=== PATIENT | female | born 1940 | race Two or more races ===

== ENCOUNTER 2016-08-30 17:56 | Inpatient (IN) | payer MEDICAID ==
[~2016-08-30] VITALS: Ht 157.5 cm; Wt 76.7 kg
[2016-08-30] MEDS ORDERED: LIPITOR40 MG GT (18:15)
[2016-08-30] MEDS ORDERED: GABAPENTIN300 MG ORAL (18:15)
[2016-08-30] MEDS ORDERED: COENZYME Q10100 MG GT (18:15)
[2016-08-30] MEDS ORDERED: LEVOTHYROXINE25 MCG GT (18:15)
[2016-08-30] MEDS ORDERED: PANTOPRAZOLE SO40 MG GT (18:15)
[2016-08-30] MEDS ORDERED: CATAPRES0.1 MG GT (18:15)
[2016-08-30] MEDS ORDERED: SINEMET 25-1001 EAC1 GT (18:15)
[2016-08-30] MEDS ORDERED: NORCO 5-325 TA1 EACH GT (18:15)
[2016-08-30] MEDS ORDERED: FERROUS SULFAT325 MG GT (18:15)
[2016-08-30] MEDS ORDERED: BISACODYL5 MG RC (18:15)
[2016-08-30] MEDS ORDERED: ACETAMINOPHEN325 M1 GT (18:15)
[2016-08-30] MEDS ORDERED: XOPENEX0.63 MG/3 HHN (18:15)
[2016-08-30 19:15] VITALS: BP 129/74
--- NOTE | 2016-08-30 19:15 | Emergency Room Report ---
History of Present Illness General Chief Complaint: Altered Level of Consciousness Source: Patient, Medical Record, PMD Present Illness HPI The patient is sent in for alleged encephalopathy. There is very sparse documentation as to this claim. She's in a [facility] facility. The patient complains about sharp pin-like pain in her joints and hands and feet. It's been going on for quite a while. She denies diabetes. She also complains about pain in her rectum. This is been around for several months. She is status post colostomy. She denies any fevers, chest pain, shortness of breath, nausea, vomiting. No abdominal pain. She's moving her bowels and callosities on difficulty. She denies dysuria. Denies any trauma. She denies depression. Allergies: Coded Allergies: No Known Allergies (Unverified , 08/30/16) Patient History Past Medical History: see triage record Past Surgical History: other - colostomy Social History Narrative SNF - Born in [facility] Last Menstrual Period: N/A Reviewed Nursing Documentation: PMH: Agreed, PSxH: Agreed Nursing Documentation-PMH History Of Psychiatric Problem: Yes - dimentia Review of Systems All Other Systems: negative except mentioned in HPI Physical Exam Vital Signs Date Time Temp Pulse Resp B/P Pulse Ox O2 Delivery O2 Flow Rate FiO2 08/30/16 17:49 98.2 70 16 129/74 98 Room Air Sp02 EP Interpretation: reviewed, normal General Appearance: well appearing, no apparent distress, GCS 15 Head: normocephalic Eyes: bilateral eye EOMI, bilateral eye PERRL, bilateral eye normal inspection ENT: moist mucus membranes Neck: supple Respiratory: lungs clear, normal breath sounds Cardiovascular #1: regular rate, rhythm Cardiovascular #2: 2+ radial (R) Gastrointestinal: normal bowel sounds, non tender, no mass, non-distended, other - colostomy Rectal: hemorrhoids Musculoskeletal: back normal, gait/station normal, normal range of motion Neurologic: alert, oriented x3, motor strength/tone normal, DTRs symmetric, sensory intact, speech normal Psychiatric: mood/affect normal, other - later observed to be conversing to wall Skin: normal inspection, warm/dry Medical Decision Making Diagnostic Impression: Primary Impression: Delirium Additional Impression: UTI (urinary tract infection) Qualified Codes: N30.00 - Acute cystitis without hematuria ER Course The patient is sent in for encephalopathy. I find that her reasoning is good at this moment. She's complaining about extremity pain and rectal pain to me. Evaluation will be with EKG, labs, CT, urinalysis out. Patient was treated with IV hydration and undergo cardiac monitoring. EKG, CXR, CT unremarkable. Labs + pyuria. Patient oriented to date. Noted to be conversing with wall. Needs evaluation for delirium. Her pain is c/w peripheral neuropathy. In light of delirium, consider B12 deficiency. Admit med Dr. Hernandez. Laboratory Tests Test 08/30/16 19:40 White Blood Count 7.5 K/UL (4.8-10.8) Red Blood Count 3.77 M/UL (4.20-5.40) L Hemoglobin 11.2 G/DL (12.0-16.0) L Hematocrit 34.4 % (37.0-47.0) L Mean Corpuscular Volume 91 FL (80-99) Mean Corpuscular Hemoglobin 29.8 PG (27.0-31.0) Mean Corpuscular Hemoglobin Concent 32.7 G/DL (32.0-36.0) Red Cell Distribution Width 14.0 % (11.6-14.8) Platelet Count 178 K/UL (150-450) Mean Platelet Volume 7.2 FL (6.5-10.1) Neutrophils (%) (Auto) 55.2 % (45.0-75.0) Lymphocytes (%) (Auto) 32.2 % (20.0-45.0) Monocytes (%) (Auto) 8.5 % (1.0-10.0) Eosinophils (%) (Auto) 2.6 % (0.0-3.0) Basophils (%) (Auto) 1.6 % (0.0-2.0) Prothrombin Time 10.3 SEC (9.30-11.50) Prothrombin Time INR 1.0 (0.9-1.1) PTT 28 SEC (23-33) Urine Color Pale yellow Urine Appearance Clear Urine pH 6.5 (4.5-8.0) Urine Specific [place] 1.010 (1.005-1.035) Urine Protein Negative (NEGATIVE) Urine Glucose (UA) Negative (NEGATIVE) Urine Ketones Negative (NEGATIVE) Urine Occult Blood Negative (NEGATIVE) Urine Nitrite Positive (NEGATIVE) H Urine Bilirubin Negative (NEGATIVE) Urine Urobilinogen Normal MG/DL (0.0-1.0) Urine Leukocyte Esterase 1+ (NEGATIVE) H Urine RBC 0-2 /HPF (0 - 2) Urine WBC 5-10 /HPF (0 - 2) H Urine Squamous Epithelial Cells Few /LPF (NONE/OCC) Urine Bacteria Moderate /HPF (NONE) H Sodium Level 139 mEQ/L (135-145) Potassium Level 4.0 mEQ/L (3.4-4.9) Chloride Level 98 mEQ/L (98-107) Carbon Dioxide Level 25 mEQ/L (20-30) Anion Gap 16 (5-15) H Blood Urea Nitrogen 17 mg/dL (7-23) Creatinine 0.9 mg/dL (0.5-0.9) Estimate Glomerular Filtration Rate mL/min (>60) Glucose Level 97 mg/dL (74-106) Lactic Acid Level 1.20 mmol/L (0.66-2.22) Calcium Level 9.2 mg/dL (8.6-10.2) Total Bilirubin 0.4 mg/dL (0.0-1.2) Aspartate Amino Transferase (AST) 20 U/L (5-40) Alanine Aminotransferase (ALT) 10 U/L (3-33) Alkaline Phosphatase 97 U/L (35-104) Ammonia 18 umol/L (11-51) Troponin I < 0.30 ng/mL (<=0.30) Total Protein 7.8 g/dL (6.6-8.7) Albumin 3.8 g/dL (3.5-5.2) Globulin 4.0 g/dL Albumin/Globulin Ratio 0.9 (1.0-2.7) L Lipase 13 U/L (< 60) Salicylates Level < 1 mg/dL (10-30) L Urine Opiates Screen Negative (NEGATIVE) Acetaminophen Level < 10 ug/mL (10-30) L Urine Barbiturates Screen Negative (NEGATIVE) Phencyclidine (PCP) Screen Negative (NEGATIVE) Urine Amphetamines Screen Negative (NEGATIVE) Urine Benzodiazepines Screen Negative (NEGATIVE) Urine Cocaine Screen Negative (NEGATIVE) Urine Marijuana (THC) Screen Negative (NEGATIVE) Serum Alcohol < 10 mg/dL EKG Diagnostic Results Rate: normal Rhythm: NSR ST Segments: no acute changes - RBB Rhythm Strip Diag. Results EP Interpretation: yes Rhythm: NSR, no PVC's, no ectopy Chest X-Ray Diagnostic Results Chest X-Ray Ordered: Yes # of Views/Limited/Complete: 1 View EP Interpretation: Yes Interpretation: no consolidation, no effusion, no pneumothorax, no acute cardiopulmonary disease Indication: Other Impression: No acute disease Interpreting ER Provider: Quentin Other X-Ray Diagnostic Results # of Views/Limited Vs Complete: 2 View EP Interpretation: Yes Interpretation: other - djd, NSBGP, post surg changes Indication: Other Impression: Other Interpreting ER Provider: quentin Last Vital Signs Date Time Temp Pulse Resp B/P Pulse Ox O2 Delivery O2 Flow Rate FiO2 08/31/16 00:00 97.6 68 17 129/93 100 Room Air Status: improved Disposition: ADMITTED INPATIENT Condition: Serious Go Saavedra M.D. Aug 30, 2016 19:15
[2016-08-30 20:22] LABS: BASOPHILS % (AUTO) 1.6 % (0.0-2.0); EOSINOPHILS % (AUTO) 2.6 % (0.0-3.0); LYMPHOCYTES % (AUTO) 32.2 % (20.0-45.0); MEAN CORPUSCULAR HEMOGLOBIN 29.8 PG (27.0-31.0); MEAN CORPUSCULAR HGB CONC 32.7 G/DL (32.0-36.0); MEAN CORPUSCULAR VOLUME 91 FL (80-99); MEAN PLATELET VOLUME 7.2 FL (6.5-10.1); MONOCYTES % (AUTO) 8.5 % (1.0-10.0); NEUTROPHILS % (AUTO) 55.2 % (45.0-75.0); PLATELET COUNT 178 K/UL (150-450); RED BLOOD COUNT 3.77 M/UL (4.20-5.40); WHITE BLOOD COUNT 7.5 K/UL (4.8-10.8)
[2016-08-30 20:25] LABS: APPEARANCE,URINE CLEAR; KETONES,URINE NEGATIVE (NEGATIVE); LEUKOCYTE ESTERASE ,URINE 1+ (NEGATIVE); NITRITE,URINE POSITIVE (NEGATIVE); PH,URINE 6.5 (4.5-8.0); PROTEIN,URINE NEGATIVE (NEGATIVE); UROBILINOGEN,URINE NORMAL MG/DL (0.0-1.0)
[2016-08-30 20:40] LABS: PROTHROMBIN TIME 10.3 SEC (9.30-11.50)
[2016-08-30 20:47] LABS: BACTERIA,URINE MODERATE /HPF; RBC,URINE 0-2 /HPF (0 - 2); SQUAMOUS EPITHELIAL CELL,UR FEW /LPF (NONE/OCC)
[2016-08-30 20:54] LABS: TROPONIN I < 0.30 ng/mL (<=0.30)
[2016-08-30 20:55] LABS: ACETAMINOPHEN < 10 ug/mL (10-30); ALANINE AMINOTRANSFERASE 10 U/L (3-33); ALBUMIN/GLOBULIN RATIO 0.9 (1.0-2.7); ALCOHOL < 10 mg/dL; ANION GAP 16 (5-15); ASPARTATE AMINO TRANSFERASE 20 U/L (5-40); CALCIUM 9.2 mg/dL (8.6-10.2); CARBON DIOXIDE 25 mEQ/L (20-30); CHLORIDE 98 mEQ/L (98-107); CREATININE 0.9 mg/dL (0.5-0.9); HEMOLYSIS 17; LIPASE 13 U/L (< 60); SODIUM 139 mEQ/L (135-145); TOTAL PROTEIN 7.8 g/dL (6.6-8.7)
[2016-08-30 20:56] LABS: AMMONIA 18 umol/L (11-51)
[2016-08-30 21:15] VITALS: BP 128/56
[2016-08-30] MEDS ORDERED: cefTRIAXone 1 GM in NS 55 ML IVPB ONE (22:15)
[2016-08-30] MEDS ORDERED: Nitroglycerin Subl 0.4mg tab (Bottle Of 25) SL PRN (22:15)
[2016-08-30] MEDS ORDERED: DuoNeb 0.5-3(2.5)mg/3ml neb HHN PRN (22:15)
[2016-08-30] MEDS ORDERED: Miralax 17gm pkt ORAL PRN (22:15)
[2016-08-30] MEDS ORDERED: Norco 5mg/325mg tab GT PRN (22:15)
[2016-08-30] MEDS ORDERED: Morphine Sulfate 2mg/ml Inj IVP PRN (22:15)
[2016-08-30 23:15] VITALS: BP 125/62
[2016-08-30] MEDS ORDERED: Vancomycin 1.5 GM in D5W 325 ML IVPB SCH (23:45)
[2016-08-30 23:59] VITALS: BP 131/70
[2016-08-31] VITALS: BP 129/93
[2016-08-31] MEDS ORDERED: Vancomycin 1 GM in D5W 275 ML IV SCH (00:30)
[2016-08-31] MEDS ORDERED: Vancomycin 1gm inj IVPB ONE (03:24)
[2016-08-31 03:53] VITALS: BP 123/67
[2016-08-31] MEDS ORDERED: Levothyroxine 25mcg tab ORAL SCH (06:30)
[2016-08-31] MEDS ORDERED: ALPRAZolam 0.5mg tab ORAL PRN ×2 (08:30→14:30)
[2016-08-31] MEDS: Sinemet 25/100 tab GT SCH ×3 (09:00→17:27)
[2016-08-31] MEDS ORDERED: Cefepime HCl 2 GM in D5W 110 ML IV SCH ×2 (09:00→21:00)
[2016-08-31] MEDS: Heparin 5000 units/ml inj SUBQ SCH ×2 (09:00→21:00)
[2016-08-31 09:49] LABS: EOSINOPHILS % (AUTO) 1.3 % (0.0-3.0); LYMPHOCYTES % (AUTO) 19.5 % (20.0-45.0); MEAN CORPUSCULAR HEMOGLOBIN 29.4 PG (27.0-31.0); MEAN CORPUSCULAR VOLUME 92 FL (80-99); MEAN PLATELET VOLUME 8.7 FL (6.5-10.1); MONOCYTES % (AUTO) 8.1 % (1.0-10.0); NEUTROPHILS % (AUTO) 70.1 % (45.0-75.0); PLATELET COUNT 135 K/UL (150-450); RED BLOOD COUNT 3.76 M/UL (4.20-5.40); WHITE BLOOD COUNT 7.8 K/UL (4.8-10.8)
[2016-08-31 09:59] LABS: ALANINE AMINOTRANSFERASE 9 U/L (3-33); ALBUMIN/GLOBULIN RATIO 0.9 (1.0-2.7); ANION GAP 16 (5-15); ASPARTATE AMINO TRANSFERASE 19 U/L (5-40); CARBON DIOXIDE 21 mEQ/L (20-30); CHLORIDE 101 mEQ/L (98-107); CREATININE 0.8 mg/dL (0.5-0.9); HEMOLYSIS 13; POTASSIUM 4.2 mEQ/L (3.4-4.9); SODIUM 138 mEQ/L (135-145); TOTAL PROTEIN 7.7 g/dL (6.6-8.7)
[2016-08-31 11:50] VITALS: BP 116/69
--- NOTE | 2016-08-31 12:20 | Diagnostic Imaging Report ---
Indication: Altered level of consciousness Technique: spiral acquisitions obtained through the brain. Angled axial and coronal 5 x 5 mm slices were reconstructed. No IV contrast utilized. Radiation dose was minimized using automated exposure control Total dose length product 1460 mGycm. CTDIvol(s) 70 mGy Comparison: none FINDINGS: No acute hemorrhage or edema. No mass effect or midline shift. There is age-related enlargement of the ventricles and extra axial CSF spaces. There is periventricular deep white matter ischemic change. Normal stewart-white differentiation. Visualized orbits are unremarkable. Visualized sinuses are unremarkable. Intact calvarium. IMPRESSION: Chronic and age-related changes. Negative for acute intracranial bleed or mass effect This agrees with the preliminary interpretation provided overnight by Dr. Rome The CT scanner at [facility] is accredited by the [employer] [place] [employer] and the scans are performed using protocols designed to limit radiation exposure to as low as reasonably achievable to attain images of sufficient resolution adequate for diagnostic evaluation
--- NOTE | 2016-08-31 15:57 | History and Physical ---
History of Present Illness General Date patient seen: Aug 31, 2016 Reason for Hospitalization: Altered Level of Consciousness Present Illness HPI 75 year old female with hx of dementia, COPD, Parkinson, group home resident brought in by paramedics with CC of delirium and ALOC. She has been trying to eave and been not cooperative. Allergies: Coded Allergies: No Known Allergies (Unverified , 08/30/16) Medication History Scheduled Atorvastatin Calcium* (Lipitor*), 40 MG GT BEDTIME, (Reported) Bisacodyl* (Dulcolax*), 10 MG RC DAILY, (Reported) Carbidopa/Levodopa 25-100 Mg* (Sinemet 25-100 Mg Tablet*), 1 TAB GT THREE TIMES A DAY, (Reported) Clonidine Hcl* (Catapres*), 0.1 MG GT EVERY 8 HOURS, (Reported) Ferrous Sulfate* (Ferrous Sulfate*), 325 MG GT DAILY, (Reported) Gabapentin* (Gabapentin*), 300 MG ORAL THREE TIMES A DAY, (Reported) Levalbuterol Hcl (Xopenex*), 0.63 MG HHN Q4H, (Reported) Levothyroxine Sodium* (Levothyroxine Sodium*), 25 MCG GT DAILY, (Reported) Pantoprazole* (Pantoprazole*), 40 MG GT DAILY, (Reported) Ubidecarenone (Coenzyme Q10), 100 MG GT DAILY, (Reported) Scheduled PRN Acetaminophen* (Acetaminophen 325MG Tablet*), 650 MG GT Q4H PRN for Pain Scale ( 3-5), (Reported) Hydrocodone Bit/Acetaminophen 5-325* ([place] 5-325*), 1 TAB GT Q4H PRN for For Pain, (Reported) Patient History Healthcare decision maker Resuscitation status Full Code Advanced Directive on File Past Medical/Surgical History Past Medical/Surgical History: (1) Parkinson disease (2) Dementia (3) COPD (chronic obstructive pulmonary disease) Review of Systems All Other Systems: negative except mentioned in HPI Physical Exam General Appearance: WD/WN, no apparent distress Lines, tubes and drains: central line HEENT: normocephalic, atraumatic Neck: non-tender, normal alignment Respiratory/Chest: chest wall non-tender, lungs clear Breasts: no masses Cardiovascular/Chest: normal peripheral pulses, normal rate, regular rhythm, no JVD Abdomen: normal bowel sounds, non tender Genitourinary/Rectal: normal genital exam Extremities: normal range of motion Last 24 Hour Vital Signs Date Time Temp Pulse Resp B/P Pulse Ox O2 Delivery O2 Flow Rate FiO2 08/31/16 14:00 116/69 08/31/16 11:50 97.2 67 21 116/69 97 Room Air 08/31/16 05:41 123/67 08/31/16 03:53 96.4 67 19 123/67 99 Room Air 08/31/16 00:00 97.6 68 17 129/93 100 Room Air 08/30/16 23:59 98.0 69 16 131/70 100 Room Air 08/30/16 23:59 98.0 69 16 131/70 100 Room Air 08/30/16 23:15 98.0 63 13 125/62 100 Room Air 08/30/16 21:15 98.0 62 12 128/56 100 Room Air 08/30/16 19:15 98.2 67 16 129/74 98 Room Air 08/30/16 17:49 98.2 70 16 129/74 98 Room Air Intake and Output 08/30/16 08/31/16 19:00 07:00 Intake Total 645.0 ml Output Total 300 ml Balance 345.0 ml Intake Oral 120 ml IV Total 525.0 ml Output Urine Total 300 ml # Voids 3 # Bowel Movements 1 Laboratory Tests Test 08/30/16 19:40 08/31/16 09:25 White Blood Count 7.5 K/UL (4.8-10.8) 7.8 K/UL (4.8-10.8) Red Blood Count 3.77 M/UL (4.20-5.40) L 3.76 M/UL (4.20-5.40) L Hemoglobin 11.2 G/DL (12.0-16.0) L 11.0 G/DL (12.0-16.0) L Hematocrit 34.4 % (37.0-47.0) L 34.5 % (37.0-47.0) L Mean Corpuscular Volume 91 FL (80-99) 92 FL (80-99) Mean Corpuscular Hemoglobin 29.8 PG (27.0-31.0) 29.4 PG (27.0-31.0) Mean Corpuscular Hemoglobin Concent 32.7 G/DL (32.0-36.0) 32.0 G/DL (32.0-36.0) Red Cell Distribution Width 14.0 % (11.6-14.8) 14.0 % (11.6-14.8) Platelet Count 178 K/UL (150-450) 135 K/UL (150-450) L Mean Platelet Volume 7.2 FL (6.5-10.1) 8.7 FL (6.5-10.1) Neutrophils (%) (Auto) 55.2 % (45.0-75.0) 70.1 % (45.0-75.0) Lymphocytes (%) (Auto) 32.2 % (20.0-45.0) 19.5 % (20.0-45.0) L Monocytes (%) (Auto) 8.5 % (1.0-10.0) 8.1 % (1.0-10.0) Eosinophils (%) (Auto) 2.6 % (0.0-3.0) 1.3 % (0.0-3.0) Basophils (%) (Auto) 1.6 % (0.0-2.0) 1.0 % (0.0-2.0) Prothrombin Time 10.3 SEC (9.30-11.50) Prothromb Time International Ratio 1.0 (0.9-1.1) Activated Partial Thromboplast Time 28 SEC (23-33) Urine Color Pale yellow Urine Appearance Clear Urine pH 6.5 (4.5-8.0) Urine Specific [place] 1.010 (1.005-1.035) Urine Protein Negative (NEGATIVE) Urine Glucose (UA) Negative (NEGATIVE) Urine Ketones Negative (NEGATIVE) Urine Occult Blood Negative (NEGATIVE) Urine Nitrite Positive (NEGATIVE) H Urine Bilirubin Negative (NEGATIVE) Urine Urobilinogen Normal MG/DL (0.0-1.0) Urine Leukocyte Esterase 1+ (NEGATIVE) H Urine RBC 0-2 /HPF (0 - 2) Urine WBC 5-10 /HPF (0 - 2) H Urine Squamous Epithelial Cells Few /LPF (NONE/OCC) Urine Bacteria Moderate /HPF (NONE) H Sodium Level 139 mEQ/L (135-145) 138 mEQ/L (135-145) Potassium Level 4.0 mEQ/L (3.4-4.9) 4.2 mEQ/L (3.4-4.9) Chloride Level 98 mEQ/L (98-107) 101 mEQ/L (98-107) Carbon Dioxide Level 25 mEQ/L (20-30) 21 mEQ/L (20-30) Anion Gap 16 (5-15) H 16 (5-15) H Blood Urea Nitrogen 17 mg/dL (7-23) 12 mg/dL (7-23) Creatinine 0.9 mg/dL (0.5-0.9) 0.8 mg/dL (0.5-0.9) Estimat Glomerular Filtration Rate mL/min (>60) mL/min (>60) Glucose Level 97 mg/dL (74-106) 104 mg/dL (74-106) Lactic Acid Level 1.20 mmol/L (0.66-2.22) Calcium Level 9.2 mg/dL (8.6-10.2) 9.0 mg/dL (8.6-10.2) Total Bilirubin 0.4 mg/dL (0.0-1.2) 0.4 mg/dL (0.0-1.2) Aspartate Amino Transf (AST/SGOT) 20 U/L (5-40) 19 U/L (5-40) Alanine Aminotransferase (ALT/SGPT) 10 U/L (3-33) 9 U/L (3-33) Alkaline Phosphatase 97 U/L (35-104) 94 U/L (35-104) Ammonia 18 umol/L (11-51) Troponin I < 0.30 ng/mL (<=0.30) Total Protein 7.8 g/dL (6.6-8.7) 7.7 g/dL (6.6-8.7) Albumin 3.8 g/dL (3.5-5.2) 3.8 g/dL (3.5-5.2) Globulin 4.0 g/dL 3.9 g/dL Albumin/Globulin Ratio 0.9 (1.0-2.7) L 0.9 (1.0-2.7) L Lipase 13 U/L (< 60) Salicylates Level < 1 mg/dL (10-30) L Urine Opiates Screen Negative (NEGATIVE) Acetaminophen Level < 10 ug/mL (10-30) L Urine Barbiturates Screen Negative (NEGATIVE) Phencyclidine (PCP) Screen Negative (NEGATIVE) Urine Amphetamines Screen Negative (NEGATIVE) Urine Benzodiazepines Screen Negative (NEGATIVE) Urine Cocaine Screen Negative (NEGATIVE) Urine Marijuana (THC) Screen Negative (NEGATIVE) Serum Alcohol < 10 mg/dL Microbiology Date/Time Source Procedure Growth Status 08/30/16 19:40 Urine,Clean Catch Urine Culture - Preliminary Gram Negative Bacillus 1 Resulted Height (Feet): 5 Height (Inches): 2.00 Weight (Pounds): 169 Medications Current Medications Medications (Trade) Dose Ordered Sig/Ricardo Route PRN Reason Start Time Stop Time Status Last Admin Dose Admin Acetaminophen (Tylenol) 650 mg Q4H PRN ORAL fever 08/30/16 22:15 09/29/16 22:14 Acetaminophen/ Hydrocodone Bitart ([place] 5/325) 1 tab Q4H PRN GT For Pain 08/30/16 22:15 09/06/16 22:14 Albuterol/ Ipratropium 3 ml 3 ml EVERY 4 HOURS PRN HHN Shortness of Breath 08/30/16 22:15 09/04/16 22:14 Alprazolam (Xanax) 1 mg Q6H PRN ORAL For Anxiety 08/31/16 14:30 09/07/16 08:29 Carbidopa/Levodopa (Sinemet 25/100) 1 ea THREE TIMES A DAY GT 08/31/16 09:00 09/30/16 08:59 Cefepime HCl/ Dextrose (Maxipime/D5W) 110 ml @ 220 mls/hr EVERY 12 HOURS IV 08/31/16 09:00 09/07/16 08:59 Clonidine HCl (Catapres) 0.1 mg EVERY 8 HOURS GT 08/31/16 06:00 09/30/16 05:59 08/31/16 05:41 Gabapentin (Neurontin) 300 mg THREE TIMES A DAY ORAL 08/31/16 09:00 09/30/16 08:59 Heparin Sodium (Porcine) (Heparin 5000 units/ml) 5,000 units EVERY 12 HOURS SUBQ 08/31/16 09:00 09/30/16 08:59 Levothyroxine Sodium (Synthroid) 25 mcg DAILY@0630 ORAL 08/31/16 06:30 09/30/16 06:29 08/31/16 05:41 Morphine Sulfate (Morphine Sulfate) 2 mg EVERY 4 HOURS PRN IVP Moderate Pain (Pain Scale 4-6) 08/30/16 22:15 09/06/16 22:14 Nitroglycerin 0.4 mg 0.4 mg Every 5 Minutes PRN SL Prn Chest Pain 08/30/16 22:15 09/29/16 22:14 Ondansetron HCl (Zofran) 4 mg Q6H PRN IVP Nausea & Vomiting 08/30/16 22:15 09/29/16 22:14 Pantoprazole (Protonix) 40 mg ACBREAKFAST ORAL 08/31/16 09:00 09/30/16 08:59 Polyethylene Glycol (Miralax) 17 gm DAILYPRN PRN ORAL Constipation 08/30/16 22:15 09/29/16 22:14 Temazepam (Restoril) 15 mg HSPRN PRN ORAL Insomnia 08/30/16 22:15 09/06/16 22:14 Vancomycin HCl/ Dextrose (Vancomycin/D5W) 325 ml @ 162.5 mls/ hr Q24H IVPB 08/30/16 23:45 09/04/16 23:44 08/31/16 03:42 Assessment/Plan Problem List: (1) UTI (urinary tract infection) ICD Codes: N39.0 - Urinary tract infection, site not specified SNOMED: 44866238 Qualifiers: Qualified Codes: N30.00 - Acute cystitis without hematuria (2) Parkinson disease ICD Codes: G20 - Parkinson's disease SNOMED: 42041436 (3) Dementia ICD Codes: F03.90 - Unspecified dementia without behavioral disturbance SNOMED: 71563778 (4) COPD (chronic obstructive pulmonary disease) ICD Codes: J44.9 - Chronic obstructive pulmonary disease, unspecified SNOMED: 74331395 (5) Delirium ICD Codes: R41.0 - Disorientation, unspecified SNOMED: 1626418 Assessment/Plan psycn evaluation pina culture symptomatic treatment LG PATTON Aug 31, 2016 15:57
[2016-08-31 16:17] VITALS: BP 139/90
[2016-08-31] MEDS ORDERED: Haloperidol 5mg/ml Inj IM PRN (16:30)
[2016-08-31 20:00] VITALS: BP 140/80
[2016-08-31 23:37] VITALS: BP 100/57
[2016-09-01 04:00] VITALS: BP 106/53
[2016-09-01] MEDS: Levothyroxine 25mcg tab GT SCH (05:55)
[2016-09-01] MEDS: ALPRAZolam 0.5mg tab GT PRN (06:00)
[2016-09-01 08:15] VITALS: BP 110/78
--- NOTE | 2016-09-01 08:23 | Diagnostic Imaging Report ---
Indication: ABD PAIN abdominal distention and pain Technique: Supine view of the abdomen Comparison: none Findings: Exposure is suboptimal. There is a gastrostomy in place. Bowel gas pattern is unremarkable. There are degenerative changes of both hips. There are degenerative changes of the lumbar spine. There is probably a compression fracture deformity of the L2 vertebral body. Impression: No acute process. Findings as noted This agrees with the preliminary interpretation provided by the emergency room physician
--- NOTE | 2016-09-01 08:24 | Diagnostic Imaging Report ---
Indication: Chest pain Technique: One view of the chest Comparison: none Findings: Lungs and pleural spaces are clear. Heart size is upper limits normal. Surgical clips are seen in the left axilla Impression: No acute process. This agrees with the preliminary interpretation provided by the emergency room physician
[2016-09-01] MEDS ORDERED: Levofloxacin 500mg tab ORAL ONE (09:00)
[2016-09-01] MEDS: Heparin 5000 units/ml inj SUBQ SCH ×2 (09:00→21:00)
--- NOTE | 2016-09-01 09:45 | Pulmonology Progress Note ---
Assessment/Plan Assessment/Plan ASSESSMENT acute encephalopathy on chronic dementia UTI COPD Parkinson disease HTN PLAN OF CARE MS floor abx , urine cx + Klebsiella , change IV abx to po Cipro upon dc O2 HHN prn urine tox screen negative CT head no acute intracranial pathology acute encephalopathy likely 2 to infection, implied to baseline DVT GI propahyxls Bowel regimen BP management with Clonidine, stable continue Sinemet psych eval pending prior to dc to SNF ( SNF requesting) case discussed and evaluated by supervising physician Subjective Allergies: Coded Allergies: No Known Allergies (Unverified , 08/30/16) Subjective afebrile, no leucocytosis mental status back to baseline Objective Last 24 Hour Vital Signs Date Time Temp Pulse Resp B/P Pulse Ox O2 Delivery O2 Flow Rate FiO2 09/01/16 08:15 97.3 68 18 110/78 98 Room Air 09/01/16 05:56 106/53 09/01/16 04:00 98.5 63 20 106/53 92 Room Air 08/31/16 23:37 97.3 63 20 100/57 98 Room Air 08/31/16 21:38 140/80 08/31/16 20:30 90 18 Room Air 08/31/16 20:00 97.2 91 20 140/80 95 Room Air 08/31/16 16:17 97.9 80 20 139/90 95 Room Air 08/31/16 14:00 116/69 08/31/16 11:50 97.2 67 21 116/69 97 Room Air Intake and Output 08/31/16 09/01/16 19:00 07:00 Intake Total 960 ml Balance 960 ml Intake Oral 960 ml # Voids 2 1 # Bowel Movements 1 General Appearance: no acute distress, other - bedridden, awake, responsive, confused elderly female HEENT: normocephalic, atraumatic Respiratory/Chest: lungs clear, no respiratory distress, no accessory muscle use Cardiovascular: normal rate, regular rhythm Abdomen: soft, non tender - obese, non distended Extremities: no edema Neurologic/Psychiatric: abnormal gait, alert, responsive Musculoskeletal: atrophy - BLE Microbiology Date/Time Source Procedure Growth Status 08/30/16 19:40 Urine,Clean Catch Urine Culture - Final Klebsiella Pneumoniae Complete 08/30/16 19:50 Arm Left Blood Culture - Preliminary NO GROWTH AFTER 24 HOURS Resulted 08/30/16 19:40 Arm Right Blood Culture - Preliminary NO GROWTH AFTER 24 HOURS Resulted Current Medications Medications (Trade) Dose Ordered Sig/Ricardo Route PRN Reason Start Time Stop Time Status Last Admin Dose Admin Acetaminophen (Tylenol) 650 mg Q4H PRN ORAL fever 08/30/16 22:15 09/29/16 22:14 Acetaminophen/ Hydrocodone Bitart ([place] 5/325) 1 tab Q4H PRN GT For Pain 08/30/16 22:15 09/06/16 22:14 Albuterol/ Ipratropium (DuoNeb 0.5-3(2.5)mg/3ml) 3 ml EVERY 4 HOURS PRN HHN Shortness of Breath 08/30/16 22:15 09/04/16 22:14 Alprazolam (Xanax) 1 mg Q6H PRN GT For Anxiety 09/01/16 08:30 09/08/16 08:29 09/01/16 06:00 Carbidopa/Levodopa (Sinemet 25/100) 1 ea THREE TIMES A DAY GT 08/31/16 09:00 09/30/16 08:59 Clonidine HCl (Catapres) 0.1 mg EVERY 8 HOURS GT 08/31/16 06:00 09/30/16 05:59 08/31/16 21:38 Gabapentin (Neurontin) 300 mg THREE TIMES A DAY GT 09/01/16 09:00 10/01/16 08:59 Haloperidol Lactate (Haldol) 5 mg Q6H PRN IM Agitation 08/31/16 16:30 09/30/16 16:29 Heparin Sodium (Porcine) (Heparin 5000 units/ml) 5,000 units EVERY 12 HOURS SUBQ 08/31/16 09:00 09/30/16 08:59 Levofloxacin (Levaquin) 250 mg DAILY GT 09/02/16 09:00 09/09/16 08:59 Levothyroxine Sodium (Synthroid) 25 mcg DAILY@0630 GT 09/01/16 06:30 10/01/16 06:29 09/01/16 05:55 Nitroglycerin (Ntg) 0.4 mg Every 5 Minutes PRN SL Prn Chest Pain 08/30/16 22:15 09/29/16 22:14 Pantoprazole (Protonix) 40 mg ACBREAKFAST ORAL 08/31/16 09:00 09/30/16 08:59 09/01/16 05:55 Polyethylene Glycol (Miralax) 17 gm DAILYPRN PRN ORAL Constipation 08/30/16 22:15 09/29/16 22:14 Temazepam (Restoril) 15 mg HSPRN PRN GT Insomnia 08/31/16 23:30 09/07/16 23:29 Percy ([facility])Charlene NP Sep 01, 2016 09:45
[2016-09-01] MEDS: Sinemet 25/100 tab GT SCH ×3 (09:58→18:23)
[2016-09-01 11:51] VITALS: BP 109/70
[2016-09-01] MEDS ORDERED: CIPRO500 MG PO (11:52)
[2016-09-01 16:03] VITALS: BP 93/62
--- NOTE | 2016-09-01 18:51 | Cardiology Report ---
APPROVED REPORT EKG Measurement Heart [id number] Sinus rhythm with 1st degree AV block Right bundle branch block Inferior infarct, age undetermined Abnormal ECG
[2016-09-01 19:20] VITALS: BP 108/65
[2016-09-01 20:00] VITALS: BP 126/58
[2016-09-02] VITALS: BP 109/59
[2016-09-02 04:00] VITALS: BP 102/65
[2016-09-02] MEDS: Levothyroxine 25mcg tab GT SCH (05:34)
[2016-09-02 08:00] VITALS: BP 118/70
[2016-09-02] MEDS: Sinemet 25/100 tab GT SCH ×3 (08:37→18:23)
[2016-09-02] MEDS: Heparin 5000 units/ml inj SUBQ SCH ×2 (08:38→21:00)
[2016-09-02] MEDS ORDERED: D5W 275ml ONE (11:32)
[2016-09-02] MEDS ORDERED: Tubing IV Secondary IV ONE (11:32)
[2016-09-02] MEDS ORDERED: NS Irrig 1000ml ONE (11:32)
[2016-09-02 12:00] VITALS: BP 106/68
--- NOTE | 2016-09-02 12:32 | Pulmonology Progress Note ---
Assessment/Plan Assessment/Plan ASSESSMENT acute encephalopathy on chronic dementia UTI COPD Parkinson disease HTN PLAN OF CARE MS floor abx , urine cx + Klebsiella , change IV abx to po Cipro upon dc O2 HHN prn urine tox screen negative CT head no acute intracranial pathology acute encephalopathy likely 2 to infection, implied to baseline DVT GI propahyxls Bowel regimen BP management with Clonidine, stable continue Sinemet psych eval pending prior to dc to SNF ( SNF requesting), asked dr Duncan 09/01 to see the patient case discussed and evaluated by supervising physician Subjective Allergies: Coded Allergies: No Known Allergies (Unverified , 08/30/16) Subjective afebrile, no leucocytosis mental status back to baseline awaiting for psyche sara to go back to SNF Objective Last 24 Hour Vital Signs Date Time Temp Pulse Resp B/P Pulse Ox O2 Delivery O2 Flow Rate FiO2 09/02/16 12:00 97.0 61 20 106/68 97 Room Air 09/02/16 08:00 97.0 67 20 118/70 96 Room Air 09/02/16 06:46 67 17 Room Air 09/02/16 05:03 102/65 09/02/16 04:00 97.2 62 20 102/65 97 Room Air 09/02/16 00:00 97.2 61 18 109/59 96 Room Air 09/01/16 20:00 97.9 64 18 126/58 97 Room Air 09/01/16 19:20 97.6 67 108/65 98 Room Air 09/01/16 18:49 63 18 Room Air 09/01/16 16:03 97.3 62 21 93/62 96 Room Air 09/01/16 14:10 109/70 Intake and Output 09/01/16 09/02/16 19:00 07:00 Intake Total 960 ml Balance 960 ml Intake Oral 960 ml # Voids 4 2 # Bowel Movements 1 Objective General Appearance: no acute distress, other - bedridden, awake, responsive, confused elderly female HEENT: normocephalic, atraumatic Respiratory/Chest: lungs clear, no respiratory distress, no accessory muscle use Cardiovascular: normal rate, regular rhythm Abdomen: soft, non tender - obese, non distended Extremities: no edema Neurologic/Psychiatric: abnormal gait, alert, responsive Musculoskeletal: atrophy - BLE Microbiology Date/Time Source Procedure Growth Status 08/31/16 00:00 Nasal Nares MRSA Culture - Final NO METHICILLIN RESISTANT STAPH AUREUS... Complete 08/30/16 19:40 Urine,Clean Catch Urine Culture - Final Klebsiella Pneumoniae Complete 08/31/16 00:00 Rectum VRE Culture - Final NO VANCOMYCIN RESISTANT ENTEROCOCCUS ... Complete 08/30/16 19:50 Arm Left Blood Culture - Preliminary NO GROWTH AFTER 48 HOURS Resulted 08/30/16 19:40 Arm Right Blood Culture - Preliminary NO GROWTH AFTER 48 HOURS Resulted Current Medications Medications (Trade) Dose Ordered Sig/Ricardo Route PRN Reason Start Time Stop Time Status Last Admin Dose Admin Acetaminophen (Tylenol) 650 mg Q4H PRN ORAL fever 08/30/16 22:15 09/29/16 22:14 Acetaminophen/ Hydrocodone Bitart ([place] 5/325) 1 tab Q4H PRN GT For Pain 08/30/16 22:15 09/06/16 22:14 Albuterol/ Ipratropium (DuoNeb 0.5-3(2.5)mg/3ml) 3 ml EVERY 4 HOURS PRN HHN Shortness of Breath 08/30/16 22:15 09/04/16 22:14 Alprazolam (Xanax) 1 mg Q6H PRN GT For Anxiety 09/01/16 08:30 09/08/16 08:29 09/01/16 06:00 Carbidopa/Levodopa (Sinemet 25/100) 1 ea THREE TIMES A DAY GT 08/31/16 09:00 09/30/16 08:59 09/02/16 08:37 Clonidine HCl (Catapres) 0.1 mg EVERY 8 HOURS GT 08/31/16 06:00 09/30/16 05:59 09/01/16 14:10 Gabapentin (Neurontin) 300 mg THREE TIMES A DAY GT 09/01/16 09:00 10/01/16 08:59 09/02/16 08:37 Haloperidol Lactate (Haldol) 5 mg Q6H PRN IM Agitation 08/31/16 16:30 09/30/16 16:29 Heparin Sodium (Porcine) (Heparin 5000 units/ml) 5,000 units EVERY 12 HOURS SUBQ 08/31/16 09:00 09/30/16 08:59 Levofloxacin (Levaquin) 250 mg DAILY GT 7/1/17 09:00 09/09/16 08:59 09/02/16 08:37 Levothyroxine Sodium (Synthroid) 25 mcg DAILY@0630 GT 09/01/16 06:30 10/01/16 06:29 09/02/16 05:34 Nitroglycerin (Ntg) 0.4 mg Every 5 Minutes PRN SL Prn Chest Pain 08/30/16 22:15 09/29/16 22:14 Pantoprazole (Protonix) 40 mg DAILY ORAL 09/02/16 09:00 10/02/16 08:59 09/02/16 08:37 Polyethylene Glycol (Miralax) 17 gm DAILYPRN PRN ORAL Constipation 08/30/16 22:15 09/29/16 22:14 Risperidone (RisperDAL) 2 mg BEDTIME ORAL 09/01/16 21:00 10/01/16 20:59 09/01/16 21:10 Temazepam (Restoril) 15 mg HSPRN PRN GT Insomnia 08/31/16 23:30 09/07/16 23:29 Percy HamiltonCharlene presley NP Sep 02, 2016 12:32
[2016-09-02 16:00] VITALS: BP 143/82
[2016-09-02 20:00] VITALS: BP 124/70
[2016-09-03] VITALS: BP 113/58
[2016-09-03 04:00] VITALS: BP 122/68
[2016-09-03] MEDS: Levothyroxine 25mcg tab GT SCH (05:44)
[2016-09-03] MEDS: Heparin 5000 units/ml inj SUBQ SCH (08:15)
[2016-09-03 08:27] VITALS: BP 127/71
[2016-09-03] MEDS: Sinemet 25/100 tab GT SCH ×2 (08:36→12:52)
--- NOTE | 2016-09-03 10:11 | Pulmonology Progress Note ---
Assessment/Plan Assessment/Plan ASSESSMENT acute encephalopathy on chronic dementia UTI with Klebsiella COPD Parkinson disease HTN PLAN OF CARE MS floor abx , urine cx + Klebsiella , change IV abx to po Cipro upon dc O2 HHN prn urine tox screen negative CT head no acute intracranial pathology acute encephalopathy likely 2 to infection, implied to baseline DVT GI propahyxls Bowel regimen BP management with Clonidine, stable continue Sinemet psych seen the patient last night,started on Risperidone dc today to SNF addendum: spoke to [facility] director of casework apparently SNF wants to have psych note prior to admission of the patient note dictated but not transcribed yet case discussed and evaluated by supervising physician Subjective Allergies: Coded Allergies: No Known Allergies (Unverified , 08/30/16) Subjective afebrile, no leucocytosis mental status at baseline psych seen the patient last night, Objective Last 24 Hour Vital Signs Date Time Temp Pulse Resp B/P Pulse Ox O2 Delivery O2 Flow Rate FiO2 09/03/16 08:27 97.9 70 19 127/71 98 Room Air 09/03/16 05:43 111/62 09/03/16 04:00 97.2 68 20 122/68 97 Room Air 09/03/16 00:00 97.2 71 20 113/58 97 Room Air 09/02/16 20:00 97.2 65 20 124/70 97 Room Air 09/02/16 16:00 97.2 75 20 143/82 98 Room Air 09/02/16 14:00 106/68 09/02/16 12:00 97.0 61 20 106/68 97 Room Air Intake and Output 09/02/16 09/03/16 19:00 07:00 Intake Total 1080 ml Balance 1080 ml Intake Oral 1080 ml # Voids 1 2 Objective General Appearance: no acute distress, other - bedridden, awake, responsive, confused elderly female HEENT: normocephalic, atraumatic Respiratory/Chest: lungs clear, no respiratory distress, no accessory muscle use Cardiovascular: normal rate, regular rhythm Abdomen: soft, non tender - obese, non distended Extremities: no edema Neurologic/Psychiatric: abnormal gait, alert, responsive Musculoskeletal: atrophy - BLE Current Medications Medications (Trade) Dose Ordered Sig/Ricardo Route PRN Reason Start Time Stop Time Status Last Admin Dose Admin Acetaminophen (Tylenol) 650 mg Q4H PRN ORAL fever 08/30/16 22:15 09/29/16 22:14 Acetaminophen/ Hydrocodone Bitart ([place] 5/325) 1 tab Q4H PRN GT For Pain 08/30/16 22:15 09/06/16 22:14 Albuterol/ Ipratropium (DuoNeb 0.5-3(2.5)mg/3ml) 3 ml EVERY 4 HOURS PRN HHN Shortness of Breath 08/30/16 22:15 09/04/16 22:14 Alprazolam (Xanax) 1 mg Q6H PRN GT For Anxiety 09/01/16 08:30 09/08/16 08:29 09/01/16 06:00 Carbidopa/Levodopa (Sinemet 25/100) 1 ea THREE TIMES A DAY GT 08/31/16 09:00 09/30/16 08:59 09/03/16 08:36 Clonidine HCl (Catapres) 0.1 mg EVERY 8 HOURS GT 08/31/16 06:00 09/30/16 05:59 09/01/16 14:10 Gabapentin (Neurontin) 300 mg THREE TIMES A DAY GT 09/01/16 09:00 10/01/16 08:59 09/03/16 08:36 Haloperidol Lactate (Haldol) 5 mg Q6H PRN IM Agitation 08/31/16 16:30 09/30/16 16:29 Heparin Sodium (Porcine) (Heparin 5000 units/ml) 5,000 units EVERY 12 HOURS SUBQ 08/31/16 09:00 09/30/16 08:59 Levofloxacin (Levaquin) 250 mg DAILY GT 09/02/16 09:00 09/09/16 08:59 09/03/16 08:36 Levothyroxine Sodium (Synthroid) 25 mcg DAILY@0630 GT 09/01/16 06:30 10/01/16 06:29 09/03/16 05:44 Nitroglycerin (Ntg) 0.4 mg Every 5 Minutes PRN SL Prn Chest Pain 08/30/16 22:15 09/29/16 22:14 Pantoprazole (Protonix) 40 mg DAILY ORAL 09/02/16 09:00 10/02/16 08:59 09/03/16 08:36 Polyethylene Glycol (Miralax) 17 gm DAILYPRN PRN ORAL Constipation 08/30/16 22:15 09/29/16 22:14 Risperidone (RisperDAL) 2 mg BEDTIME ORAL 09/01/16 21:00 10/01/16 20:59 09/02/16 21:05 Temazepam (Restoril) 15 mg HSPRN PRN GT Insomnia 08/31/16 23:30 09/07/16 23:29 Percy ([facility])Charlene NP Sep 03, 2016 10:11
[2016-09-03] MEDS ORDERED: CIPRO500 MG PO (10:14)
[2016-09-03] MEDS ORDERED: RISPERDAL2 MG ORAL (10:14)
[2016-09-03 12:37] VITALS: BP 123/69
[2016-09-03] MEDS: ALPRAZolam 0.5mg tab GT PRN (12:52)
--- NOTE | 2016-09-03 14:10 | Geriatric Progress Note ---
Assessment/Plan Assessment/Plan dementia, delirium is improved. the pt maybe dced the pt doesn't meet the criteria of 5150 the pt doesn't meet with criteria of psych hospitalization Discussed with: patient Subjective Interval Events 75 year old female with hx of dementia, COPD, Parkinson, group home resident brought in by paramedics with CC of delirium and ALOC. the pt stated that she wanted to kill herself. During the eval the pt was aaox month person and year. the pt was pw impairment with cognition the pt was denying si/hi. the pt was delusional about some subjects. the pt was calm and was not endorsing SI Mood/Memory: Reports: prior hx Psychiatric: Reports: hallucinations Geriatric Geriatric Last 24 Hour Vital Signs Date Time Temp Pulse Resp B/P Pulse Ox O2 Delivery O2 Flow Rate FiO2 09/03/16 13:06 123/69 09/03/16 12:37 98.4 70 20 123/69 96 Room Air 09/03/16 08:27 97.9 70 19 127/71 98 Room Air 09/03/16 06:35 81 20 Room Air 21 09/03/16 05:43 111/62 09/03/16 04:00 97.2 68 20 122/68 97 Room Air 09/03/16 00:00 97.2 71 20 113/58 97 Room Air 09/02/16 20:00 97.2 65 20 124/70 97 Room Air 09/02/16 16:00 97.2 75 20 143/82 98 Room Air Intake and Output 09/02/16 09/03/16 19:00 07:00 Intake Total 1080 ml Balance 1080 ml Intake Oral 1080 ml # Voids 1 2 Current Medications Medications (Trade) Dose Ordered Sig/Ricardo Route PRN Reason Start Time Stop Time Status Last Admin Dose Admin Acetaminophen (Tylenol) 650 mg Q4H PRN ORAL fever 08/30/16 22:15 09/29/16 22:14 Acetaminophen/ Hydrocodone Bitart ([place] 5/325) 1 tab Q4H PRN GT For Pain 08/30/16 22:15 09/06/16 22:14 Albuterol/ Ipratropium (DuoNeb 0.5-3(2.5)mg/3ml) 3 ml EVERY 4 HOURS PRN HHN Shortness of Breath 08/30/16 22:15 09/04/16 22:14 Alprazolam (Xanax) 1 mg Q6H PRN GT For Anxiety 09/01/16 08:30 09/08/16 08:29 09/03/16 12:52 Carbidopa/Levodopa (Sinemet 25/100) 1 ea THREE TIMES A DAY GT 08/31/16 09:00 09/30/16 08:59 09/03/16 12:52 Clonidine HCl (Catapres) 0.1 mg EVERY 8 HOURS GT 08/31/16 06:00 09/30/16 05:59 09/03/16 13:06 Gabapentin (Neurontin) 300 mg THREE TIMES A DAY GT 09/01/16 09:00 10/01/16 08:59 09/03/16 12:52 Haloperidol Lactate (Haldol) 5 mg Q6H PRN IM Agitation 08/31/16 16:30 09/30/16 16:29 Heparin Sodium (Porcine) (Heparin 5000 units/ml) 5,000 units EVERY 12 HOURS SUBQ 08/31/16 09:00 09/30/16 08:59 Levofloxacin (Levaquin) 250 mg DAILY GT 09/02/16 09:00 09/09/16 08:59 09/03/16 08:36 Levothyroxine Sodium (Synthroid) 25 mcg DAILY@0630 GT 09/01/16 06:30 10/01/16 06:29 09/03/16 05:44 Nitroglycerin (Ntg) 0.4 mg Every 5 Minutes PRN SL Prn Chest Pain 08/30/16 22:15 09/29/16 22:14 Pantoprazole (Protonix) 40 mg DAILY ORAL 09/02/16 09:00 10/02/16 08:59 09/03/16 08:36 Polyethylene Glycol (Miralax) 17 gm DAILYPRN PRN ORAL Constipation 08/30/16 22:15 09/29/16 22:14 Risperidone (RisperDAL) 2 mg BEDTIME ORAL 09/01/16 21:00 10/01/16 20:59 09/02/16 21:05 Temazepam (Restoril) 15 mg HSPRN PRN GT Insomnia 08/31/16 23:30 09/07/16 23:29 Height (Feet): 5 Height (Inches): 2.00 Weight (Pounds): 169 General Appearance: well appearing, well dressed, well groomed, well nourished , alert Neurologic: alert, oriented x3 Psychiatric Behavior: cooperative Orientation: person, place, situation Affect: appropriate Insight: poor Fern Duncan M.D. Sep 03, 2016 14:10
[2016-09-03 15:29] VITALS: BP 118/67
--- NOTE | 2016-09-06 07:51 | Discharge Summary ---
Discharge Summary Hospital Course Date of Admission Aug 30, 2016 at 21:00 Date of Discharge Sep 03, 2016 at 16:24 Admitting Diagnosis delirium HPI Massiel Blount is a 75 year old female who was admitted on Aug 30, 2016 at 21:00 for Delirium Hospital Course dc summary #[id number] Discharge Medications New Medications: Ciprofloxacin* (Cipro*) 500 Mg Tablet 500 MG PO BID, #10 TAB Risperidone* (Risperdal*) 2 Mg Tablet 2 MG ORAL BEDTIME, #30 TAB Continued Medications: Acetaminophen* (Acetaminophen 325MG Tablet*) 325 Mg Tablet 650 MG GT Q4H PRN for Pain Scale (3-5), TAB Atorvastatin Calcium* (Lipitor*) 40 Mg Tablet 40 MG GT BEDTIME, #30 TAB 0 Refills Bisacodyl* (Dulcolax*) 5 Mg Tablet.dr 10 MG RC DAILY, #10 TAB 0 Refills Carbidopa/Levodopa 25-100 Mg* (Sinemet 25-100 Mg Tablet*) 1 Each Tablet 1 TAB GT THREE TIMES A DAY, TAB Clonidine Hcl* (Catapres*) 0.1 Mg Tablet 0.1 MG GT EVERY 8 HOURS, TAB Ferrous Sulfate* (Ferrous Sulfate*) 325 Mg Tablet 325 MG GT DAILY, #30 TAB 0 Refills Gabapentin* (Gabapentin*) 300 Mg Capsule 300 MG ORAL THREE TIMES A DAY, CAP 0 Refills Hydrocodone Bit/Acetaminophen 5-325* ([place] 5-325*) 1 Each Tablet 1 TAB GT Q4H PRN for For Pain, TAB 0 Refills Levalbuterol Hcl (Xopenex*) 0.63 Mg/3 Ml Vial.neb 0.63 MG HHN Q4H for 30 Days, MG 0 Refills Levothyroxine Sodium* (Levothyroxine Sodium*) 25 Mcg Tablet 25 MCG GT DAILY, TAB Take in the morning on an empty stomach, at least 30 minutes before food. Pantoprazole* (Pantoprazole*) 40 Mg Tablet.dr 40 MG GT DAILY, TAB Ubidecarenone (Coenzyme Q10) 100 Mg Tablet 100 MG GT DAILY, TAB Discharge Condition Upon Discharge: stable Discharge Disposition Patient was discharged to SNF Discharge Diagnoses: Percy ([facility])Charlene NP Sep 06, 2016 07:51
--- NOTE | 2016-09-06 11:46 | Discharge Summary 2 SIG ---
DATE OF ADMISSION: 08/30/2016 DATE OF DISCHARGE: 09/03/2016 REASON FOR ADMISSION: This is a 75-year-old female, who was [facility] for evaluation for altered level of consciousness and alleged encephalopathy. She denied fever, chills, shortness of breath, chest pain, nausea, vomiting or abdominal pain. Workup in the emergency room revealed stable vital signs. No fever. No leukocytosis. CT of the head was negative for any acute intracranial pathology. Chest x-ray was negative for any acute cardiopulmonary pathology. Abdominal x-ray was negative. Urinalysis was consistent with UTI. Urine tox screen was negative. Toxicology screen for Tylenol, salicylate, and alcohol was negative as well. The patient admitted for further management. ADMITTING DIAGNOSES: 1. Delirium likely secondary to acute urinary tract infection. 2. Chronic dementia. 3. Urinary tract infection. 4. Parkinson disease. 5. Chronic obstructive pulmonary disease. HOSPITAL COURSE: The patient admitted. The patient started on empiric antibiotics. Urine culture revealed Klebsiella. Antibiotic regimen optimized. Psychiatry seen and evaluated the patient. Added Risperdal to the patient's management. Psychiatrist determined that the patient does not meet criteria for 5150 as well as she did not meet criteria for psychiatric hospitalization. Psychiatrist cleared the patient for discharge. Supplemental oxygen and pulmonary toilet provided as needed. DVT and GI prophylaxis provided. Bowel regimen instituted. Blood pressure was managed with clonidine and was stable. Sinemet was continued. The patient was stable for discharge. Acute toxic metabolic encephalopathy likely due to the acute infectious process and underlying chronic dementia. DISCHARGE DIAGNOSES: 1. Acute toxic metabolic encephalopathy on chronic dementia. 2. Chronic dementia. 3. Urinary tract infection with Klebsiella. 4. Hypertension. 5. Chronic obstructive pulmonary disease. 6. Parkinson disease. DISCHARGE MEDICATIONS: See medication reconciliation list. DISCHARGE INSTRUCTIONS: The patient discharged to [facility]. FOLLOWUP: Follow up with medical doctor at the facility. Urban Hernandez M.D. I have been assigned to dictate discharge summary on this account and I was not involved in the patient's management. Charlene Greer N.P. ([facility]te[facility]) DR: CHAZ JOB#: [id number] CC:
== END 2016-09-03 16:24 | DRG 463 ==
LOC: EDBD 17:56 → EMR 18:16 → 4E 21:00 → EDBEDREQ 21:30 → 4E 23:59
DX: N39.0 Urinary tract infection, site not specified (principal); G92 Toxic encephalopathy; G20 Parkinson's disease; F02.80 Dementia in other diseases classified elsewhere, unspecified severity, without behavioral disturbance, psychotic disturbance, mood disturbance, and anxiety; J44.9 Chronic obstructive pulmonary disease, unspecified; R41.0 Disorientation, unspecified; B96.1 Klebsiella pneumoniae [K. pneumoniae] as the cause of diseases classified elsewhere; I10 Essential (primary) hypertension
CPT/HCPCS: 36415; 70450; 71010; 74000; 80053; 80300; 80329; 81003; 82140; 83605; 83690; 84484; 85025; 85610; 85730; 87040; 87081; 87086; 87181; 93005; 94664